=== PATIENT | female | born 1990 | race American Indian/Alaskan Native ===

== ENCOUNTER 2018-06-03 11:39 | Outpatient (AMB) | payer OTHER, SELFPAY ==
[2018-06-03 12:42] VITALS: BP 96/60; PULSE 111; RESP 20; TEMP 37.2; O2SAT 99; BMI 39.9
--- NOTE | 2018-06-03 12:42 | UCVISIT ---
Intake Ht./Wt. Decline/Exclusions Patient Declined Height and Weight this visit: No PT Meets exclusion criteria: No Vital Signs 06/03/18 12:42 06/03/18 13:16 Height Method Measured Weight Measurement Method Standing Scale BMI 39.9 Temp 98.9 F Temp Source Temporal Artery Scan Pulse 111 H 106 H Pulse Source Monitor Monitor Respiration 20 20 BP 96/60 96/66 Blood Pressure Source Automatic Cuff Automatic Cuff Blood Pressure Location Left Upper Arm Left Upper Arm Position Sitting Sitting Pulse Oximetry (%) 99 97 Oxygen Delivery Method Room Air Room Air Intake Visit Reasons: UC Cough Triage Triage Allergy / Med Rec Allergies No Known Allergies Allergy (Verified 06/03/18 12:57) Band Placement: Patient Identification ROSELIA: [id number] Arrival Mode of Arrival: Private Vehicle Method of Arrival: Ambulatory Accompanied By: Self PCP or OBGYN visit in last 3 months: Yes Language Preferred Language: Belarusian Yard Engineer Required: No Female History Now: Yes Weeks Gestation: 30 Last Menstrual Period: 09/25/17 : No Social History Alcohol / Drugs Hx Alcohol Use: No Hx Substance Use: No Safety Do You Feel Safe at Home: Yes Authorities Contacted: N/A Zamudio Fall Scale Special Populations Patient Comatose, Paralyzed or Immobile: No Patient Under the Age of 44 Years Old: No Assessment History of falling; immediate or within 3 months: No Secondary diagnosis: No Ambulatory aid: None IV Infusion: No Gait/Transferring: Normal/bedrest/immobile Mental Status: Oriented to own ability Score Score: 0 Risk Level/Action Risk Level: Low Risk Action: Good Basic Nursing Care Fall Star Level 1 Fall Star Level 1: Yes Patient Education Topic Education Topics: Discharge Instructions and Plan of Care Teaching Recipient: Patient Readiness, Motivation to Learn: Active Methods: Verbal instruction and Hand Out Educ Materials Suggested by INFO Button/Rx Monograph Given: No Response: Verbalize Understanding Yard Engineer Required: No Population Health PMH Hx Congestive Heart Failure: No Hx Diabetes Mellitus Type 1: No Hx Diabetes Mellitus Type 2: No Hx Renal Disease: No Hx Chronic Obstructive Pulmonary Disease (COPD): No Past Medical History Reviewed and agree with Nursing documentation.: Yes Past Medical History History Provided By: Patient Cardiac Medical History Hx Congestive Heart Failure: No Endocrine Medical History Hx Diabetes Mellitus Type 1: No Hx Diabetes Mellitus Type 2: No Genitourinary Medical History Hx Renal Disease: No Respiratory Medical History Hx COPD: No HPI Cough Patient is a 27-year-old female presents to clinic with complaint of cough for the past week. Patient reports that her cough is nonproductive, and she feels that she has drainage to the back of her throat. Cough is mild to moderate, non- painful, no [id number] medications attempted The patient denies using humidifier nightly. She has not tried an antihistamine, and denies chills, denies unusual travel. Vaccinations up-to-date, flu vaccine included. Denies smoking, denies history of TB denies spitting up any blood, denies recent unintended weight loss denies night sweats denies starting any new antihypertensive medicine denies history of GERD or reflux Pulmonary Results: No Data to Display Review of Systems (UC) Review of Systems All systems reviewed & no additional complaints except as documented ENT Ears. Nose, Mouth, and Throat: Reports as per HPI Resp Respiratory: Reports as per HPI Exam (UC) Limitations: no limitations General Appearance: alert, in no apparent distress, comfortable, cooperative, healthy appearing, well developed and well groomed Head exam: atraumatic, normocephalic and normal inspection Eye exam: Reports normal appearance and Reports EOMI ENT exam: Present normal exam, normal external ear exam, TM's normal bilaterally and mucous membranes moist; Absent normal oropharynx ( Cobble stoning noted posterior pharynx, no erythema no edema, positive post nasal drip, no tonsillar exudates) Neck Exam: Present normal inspection, non-tender, trachea midline, supple and full ROM; Absent lymphadenopathy, meningismus and tenderness SPO2%: 99% SPO2 type: Room Air SPO2% Normal/Abnormal: Normal Respiratory exam: Present normal lung sounds bilaterally, normal respiratory effort, able to speak in complete sentences and clear to ascultation bilaterally Cardiovascular exam: Present regular rate and regular rhythm Skin exam: Present warm, dry, intact and normal color Office Procedures Level of Care Nursing/Assessment/Reassessment Patient Status: Established Patient Nursing Assessment/Reassessment: Triage Asessment, Initial Vital Signs and RN General Assessments Coordination of Care: DC Instructions Simple, Lab/Imaging Orders and Specimen Collection Established Patient Charge Established Patient Point Assignment: 65 Established Patient Point Assignment: EP Level 2 (40-75) Procedures: Pulse Ox reading: Yes Strep Screen: Yes Rapid Strep Bedside Test Rapid Strep: Negative Assessment and Plan Assessment & Plan (1) Acute rhinitis: (2) Cough: Plan Details Assessment: The patient has respiratory symptoms and physical exam suggestive of an acute viral URI. They appear well here in the ED without signs of respiratory distress or hypoxia and are tolerating oral intake. Chest x-ray is not indicated due to low suspicion of pneumonia. I do not suspect serious bacterial infection, sepsis, meningitis, or UTI, and based on viral symptoms, antibiotics are not necessary. Return precautions were given, including increased work of breathing, cyanosis, apnea, chest pain, persistent fevers, vomiting, lethargy, poor oral intake or other concerns for worsening illness. Patient and/or Caregiver verbalized understanding of the plan, felt comfortable with discharge, and all questions were answered. Other Medications: New: loratadine (Allergy Relief (loratadine)) 10 mg PO QDAY 30 tabs 3RF allergy symptoms Other Orders: Orders: Rapid Strep 06/03/18 Throat Culture 06/03/18 Additional Comments: Follow-up with your doctor in 3-5 days for recheck and evaluation. Take any/all medications as directed. If worse, not improving, or any concerns go immediately to the emergency department. Instructions: Allergies Nasal Causes Additional Information PA/CAFETERIA OPERATOR Supervising Physician: Moreno Vasquez [facility] Evaluation Discharge Information Seen, Treated and Released by Provider: No Left Prior to Receiving Discharge Instructions: No Transfer to Outside Facility: No Vital Signs Vitals Signs N/A: Yes Pain Pain Medication / Other Intervention Provided: No Medication Medication Given this Visit: No Discharge Information Condition on Discharge: Stable Mode of Discharge: Ambulatory Discharge Transportation: Private Vehicle Instructions Yard Engineer Required: No Discharge Instructions Given To: Patient Was Follow up Care Ordered: Yes Verbalizes Understanding of Discharge Instructions: Yes [facility] information card provided?: Yes Patient plan follow up w/PCP for [facility]: No
--- NOTE | 2018-06-03 12:59 | URCARE_ITS ---
Intake Ht./Wt. Decline/Exclusions Patient Declined Height and Weight this visit: No PT Meets exclusion criteria: No Vital Signs 06/03/18 12:42 06/03/18 13:16 Height Method Measured Weight Measurement Method Standing Scale BMI 39.9 Temp 98.9 F Temp Source Temporal Artery Scan Pulse 111 H 106 H Pulse Source Monitor Monitor Respiration 20 20 BP 96/60 96/66 Blood Pressure Source Automatic Cuff Automatic Cuff Blood Pressure Location Left Upper Arm Left Upper Arm Position Sitting Sitting Pulse Oximetry (%) 99 97 Oxygen Delivery Method Room Air Room Air Intake Visit Reasons: [facility] Cough Triage Triage Allergy / Med Rec Allergies No Known Allergies Allergy (Verified 06/03/18 12:57) Band Placement: Patient Identification ROSELIA: [id number] Arrival Mode of Arrival: Private Vehicle Method of Arrival: Ambulatory Accompanied By: Self PCP or OBGYN visit in last 3 months: Yes Language Preferred Language: Sami Seed Cleaner Required: No Female History Now: Yes Weeks Gestation: 30 Last Menstrual Period: 09/25/17 : No Social History Alcohol / Drugs Hx Alcohol Use: No Hx Substance Use: No Safety Do You Feel Safe at Home: Yes Authorities Contacted: N/A Zamudio Fall Scale Special Populations Patient Comatose, Paralyzed or Immobile: No Patient Under the Age of 44 Years Old: No Assessment History of falling; immediate or within 3 months: No Secondary diagnosis: No Ambulatory aid: None IV Infusion: No Gait/Transferring: Normal/bedrest/immobile Mental Status: Oriented to own ability Score Score: 0 Risk Level/Action Risk Level: Low Risk Action: Good Basic Nursing Care Fall Star Level 1 Fall Star Level 1: Yes Patient Education Topic Education Topics: Discharge Instructions and Plan of Care Teaching Recipient: Patient Readiness, Motivation to Learn: Active Methods: Verbal instruction and Hand Out Educ Materials Suggested by INFO Button/Rx Monograph Given: No Response: Verbalize Understanding Seed Cleaner Required: No Population Health PMH Hx Congestive Heart Failure: No Hx Diabetes Mellitus Type 1: No Hx Diabetes Mellitus Type 2: No Hx Renal Disease: No Hx Chronic Obstructive Pulmonary Disease (COPD): No Past Medical History Reviewed and agree with Nursing documentation.: Yes Past Medical History History Provided By: Patient Cardiac Medical History Hx Congestive Heart Failure: No Endocrine Medical History Hx Diabetes Mellitus Type 1: No Hx Diabetes Mellitus Type 2: No Genitourinary Medical History Hx Renal Disease: No Respiratory Medical History Hx COPD: No HPI Cough Patient is a 27-year-old female presents to clinic with complaint of cough for the past week. Patient reports that her cough is nonproductive, and she feels that she has drainage to the back of her throat. Cough is mild to moderate, non- painful, no [id number] medications attempted The patient denies using humidifier nightly. She has not tried an antihi stamine, and denies chills, denies unusual travel. Vaccinations up-to-date, flu vaccine included. Denies smoking, denies history of TB denies spitting up any blood, denies recent unintended weight loss denies night sweats denies starting any new antihypertensive medicine denies history of GERD or reflux Pulmonary Results: No Data to Display Review of Systems (UC) Review of Systems All systems reviewed & no additional complaints except as documented ENT Ears. Nose, Mouth, and Throat: Reports as per HPI Resp Respiratory: Reports as per HPI Exam (UC) Limitations: no limitations General Appearance: alert, in no apparent distress, comfortable, cooperative, healthy appearing, well developed and well groomed Head exam: atraumatic, normocephalic and normal inspection Eye exam: Reports normal appearance and Reports EOMI ENT exam: Present normal exam, normal external ear exam, TM's normal bilaterally and mucous membranes moist; Absent normal oropharynx ( Cobble stoning noted posterior pharynx, no erythema no edema, positive post nasal drip, no tonsillar exudates) Neck Exam: Present normal inspection, non-tender, trachea midline, supple and full ROM; Absent lymphadenopathy, meningismus and tenderness SPO2%: 99% SPO2 type: Room Air SPO2% Normal/Abnormal: Normal Respiratory exam: Present normal lung sounds bilaterally, normal respiratory effort, able to speak in complete sentences and clear to ascultation bilaterally Cardiovascular exam: Present regular rate and regular rhythm Skin exam: Present warm, dry, intact and normal color Office Procedures Level of Care Nursing/Assessment/Reassessment Patient Status: Established Patient Nursing Assessment/Reassessment: Triage Asessment, Initial Vital Signs and RN General Assessments Coordination of Care: DC Instructions Simple, Lab/Imaging Orders and Specimen Collection Established Patient Charge Established Patient Point Assignment: 65 Established Patient Point Assignment: EP Level 2 (40-75) Procedures: Pulse Ox reading: Yes Strep Screen: Yes Rapid Strep Bedside Test Rapid Strep: Negative Assessment and Plan Assessment & Plan (1) Acute rhinitis: (2) Cough: Plan Details Assessment: The patient has respiratory symptoms and physical exam suggestive of an acute viral URI. They appear well here in the ED without signs of respiratory distress or hypoxia and are tolerating oral intake. Chest x-ray is not indicated due to low suspicion of pneumonia. I do not suspect serious bacterial infection, sepsis, meningitis, or UTI, and based on viral symptoms, antibiotics are not necessary. Return precautions were given, including increased work of breathing, cyanosis, apnea, chest pain, persistent fevers, vomiting, lethargy, poor oral intake or other concerns for worsening illness. Patient and/or Caregiver verbalized understanding of the plan, felt comfortable with discharge, and all questions were answered. Other Medications: New: loratadine (Allergy Relief (loratadine)) 10 mg PO QDAY 30 tabs 3RF allergy symptoms Other Orders: Orders: Rapid Strep 06/03/18 Throat Culture 06/03/18 Additional Comments: Follow-up with your doctor in 3-5 days for recheck and evaluation. Take any/all medications as directed. If worse, not improving, or any concerns go immediately to the emergency department. 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: Moreno Vasquez [facility] Evaluation Discharge Information Seen, Treated and Released by Provider: No Left Prior to Receiving Discharge Instructions: No Transfer to Outside Facility: No Vital Signs Vitals Signs N/A: Yes Pain Pain Medication / Other Intervention Provided: No Medication Medication Given this Visit: No Discharge Information Condition on Discharge: Stable Mode of Discharge: Ambulatory Discharge Transportation: Private Vehicle Instructions Seed Cleaner Required: No Discharge Instructions Given To: Patient Was Follow up Care Ordered: Yes Verbalizes Understanding of Discharge Instructions: Yes [facility] information card provided?: Yes Patient plan follow up w/PCP for [facility]: No
[2018-06-03 13:16] VITALS: BP 96/66; PULSE 106; RESP 20; O2SAT 97
== END 2018-06-03 13:29 | disposition home or self-care (01) ==
PROVIDERS: PCP Physician Assistant; Referring Provider Physician Assistant; Visit Provider Physician Assistant
DX: I10 Essential (primary) hypertension (principal)